=== PATIENT | female | born 1960 | race Caucasian/White ===

== ENCOUNTER 2016-08-26 19:17 | Emergency (ER) | payer OTHER ==
--- NOTE | 2016-08-26 21:33 | ED CLINICAL REPORT ---
Clinical Report - Physicians/Mid Levels [facility] [address] [place] [address] 08/26/2016 19:16 Patient: ESTHER BENEDICT Time Seen: 1927. Arrived- By private vehicle. Historian- patient. HISTORY OF PRESENT ILLNESS Chief Complaint: COUGH and SORE THROAT. This started past week and is still present (unchanged). It was abrupt in onset and has been constant but is not gone now. The illness is described as moderate. The patient has had a cough, a sore throat and a nasal discharge. She has had moderate amounts of thick, yellow sputum. (no leg swelling, weight gain, change in meds, or water retention. difficulty breathing only with the bouts of coughing). Additional history - The patient has had contact with a sick individual. (unknown). No recent travel. Similar symptoms previously: Recent medical care: Not recently seen/assessed. REVIEW OF SYSTEMS No diarrhea or abdominal pain. All systems otherwise negative, except as recorded above. PAST HISTORY See nurses notes. SOCIAL HISTORY Never smoker. Not exposed to second-hand smoke at home. No alcohol use or drug use. Is a local resident. ADDITIONAL NOTES The nursing notes have been reviewed. PHYSICAL EXAM Vital Signs: 08/26/2016 19:25 BP: 123/73. HR: 59. RR: 18. O2 saturation: 97%. Temp: 98.6 F. Pain level now: 3/10. Blood pressure normal. Oxygen saturation normal. Appearance: Alert. No acute distress. Eyes: Pupils equal, round and reactive to light. Eyes normal inspection. ENT: Ears normal. Nose normal. Pharynx normal. Uvula midline. Neck: Normal inspection. Neck supple. No meningeal signs. CVS: Normal heart rate and rhythm. Heart sounds normal. Pulses normal. Respiratory: No respiratory distress. Expiratory mild bilateral wheezes diffusely. No rales, rhonchi or stridor. Abdomen: Soft and nontender. No organomegaly. Back: Normal inspection. No CVA tenderness. Skin: Skin warm and dry. Normal skin color. No rash. Normal skin turgor. Extremities: Extremities exhibit normal ROM. No clubbing present or lower extremity edema. No calf tenderness. No lower extremity edema. Neuro: Oriented X 3. No motor deficit. No sensory deficit. LABS, X-RAYS, AND EKG Chest X-ray: Normal Chest X-Ray. PROGRESS AND PROCEDURES Course of Care: the patient is a pleasant 56-year-old male presented revised cough. Patient's symptoms have been ongoing for the past week. Vision isalso noted to be wheezing on examination. If patient's symptoms do not improve as expected with breathing treatments, will consider other causes for the patient's shortness of breath. The patient's only happen when patient is having a bout of coughing however. Patient retreated with breathing treatments. Respiratory therapist has been called. We decided with a chest x-ray for any signs of pneumonia. Patient is nontoxic and is pleasant. Patientdoes not appear to be septic. Patient's workup was noted for a clear chest x-ray. Symptoms havebeen improving with the breathing treatments. Patient has required several breathing treatments while here in the emergency department however states that he feels significantly improved. Patient with improved aeration in all lung lynch. Patient only now with very slight intermittent wheezing heard only occasionally with forced expiration and with coughing. Because of the patient's past medical history and current presentation, had a discussion with the patient in regards to the benefits and risks of antibiotic therapy. Patient also with digoxin. On able to provide a prescription forazithromycin however doxycycline does not appear to have any interactions. This medication should help with the patient's symptoms. Had a discussion patient to delinquency prevention social worker. Emergency Department diagnosis, home, follow-up, and return precautions. All questions have been answered. The patient expressed understanding of these instructions and was agreeable to them. Disposition: Discharged. Condition: good. CLINICAL IMPRESSION Acute bacterial bronchitis. Acute bronchospasm INSTRUCTIONS Warnings: GENERAL WARNINGS: Return or contact your physician immediately if your condition worsens or changes unexpectedly, if not improving as expected, or if other problems arise. Specifically return if pain, vomiting, bleeding, breathing difficulty or fever. Your Current Medications: CONTINUE TAKING THE FOLLOWING MEDICATIONS: Carvedilol Oral : BID. CeleXA Oral : daily. Digoxin Oral : daily. Furosemide Oral : daily. Losartan Potassium Oral : daily. Spironolactone Oral : daily. Wellbutrin Oral : daily. Prescription Medications: Doxycycline 100 mg: Take 1 capsule orally every 12 hours for 10 days. No refill. (Disp 20 caps) Phenergan w/ Codeine 10mg / 6.25mg per 5 mL: take 1-2 teaspoons every 6 hours as needed for pain or cough. No refill. Substitution is permissible. (Disp 120 mL) Follow-up: Return to the emergency department as needed. Follow up with your doctor in three days. Reason for referral: recheck today's concerns. Summary of care provided to patient via paper. Screening today revealed the patient's blood pressure to be in the normal range. The patient should follow up with a primary care provider for blood pressure management. Understanding of the discharge instructions verbalized by patient. (Electronically signed by Quique Sullivan Dr. 08/28/2016 12:16)
--- NOTE | 2016-08-26 21:34 | ED NURSING NOTES ---
Clinical Report - Nurses [facility] [address] [place] [address] 08/26/2016 19:16 Patient: ESTHER BENEDICT TRIAGE Triage time 19:25. Acuity: LEVEL 3. Chief Complaint: COUGH, RUNNY NOSE, FEVER and SORE THROAT. --19:36 Ayesha Gustafson R.N. 19:25 08/26/16. BP: 123/73 taken on the left arm, while lying. HR: 59 (regular and bradycardic). RR: 18 (regular and unlabored). O2 saturation: 97% on room air. Temp: 98.6 F (oral). Pain level now: 06/29. --19:36 Ayesha Gustafson R.N. Weight: 108.8 kg stated. Height/Length: 69 inches Per Patient. BMI: 35.4. --19:36 Ayesha Gustafson R.N. Medications Carvedilol Oral, BID. --19:26 Ayesha Gustafson R.N. Spironolactone Oral, daily. --19:26 Ayesha Gustafson R.N. Digoxin Oral, daily. --19:27 Ayesha Gustafson R.N. Furosemide Oral, daily. --19:27 Ayesha Gustafosn R.N. Losartan Potassium Oral, daily. --19:27 Ayesha Gustafson R.N. CeleXA Oral, daily. --19:27 Ayesha Gustafson R.N. Wellbutrin Oral, daily. --19:27 Ayesha Gustafson R.N. Allergies No Known Drug Allergy. --19:28 Ayesha Gustafson R.N. History Arrived by private vehicle. Historian: patient. Accompanied by family. Primary physician (hussein). Onset. (3 days ago). She has had a nasal discharge, fatigue and difficulty breathing. PAST MEDICAL HX: Immunizations: up-to-date. SOCIAL HX: Smoker- current status unknown (electronic cigarrettes). No alcohol use or drug use. SELF HARM ASSESSMENT: A self harm assessment was performed. The patient answered "no" to the question "Have you recently felt down, depressed, or hopeless?", "Have you noticed less interest or pleasure in doing things?", "Do you have thoughts of harming or killing yourself?", "Are you here because you tried to hurt yourself?", "Have you ever tried to hurt yourself before today?", "Have you recently had thoughts about harming or killing others?" and "Do you have any dangerous items in your possession?". --19:36 Ayesha Gustafson R.N. PROBLEMS: Pulmonary Embolism. Pacemaker. Stented coronary artery. Hypertension. Depression. Congestive Heart Failure. --19:30 Ayesha Gustafson R.N. ADDITIONAL SURGERIES: Angioplasty of blood vessel. Pacemaker. --19:30 Ayesha Gustafson R.N. Interventions ID band on patient. --19:36 Ayesha Gustafson R.N. PHYSICAL ASSESSMENT Ambulatory to room. GENERAL / NEURO / PSYCH: Alert. Oriented X 4. Appears in no acute distress. HEENT: Pupils equal, round and reactive to light. Voice within normal limits. Mucous membranes are pink. RESPIRATORY: Mild respiratory distress. Respirations not labored. Wheezes bilaterally. Cough. CVS: Normal sinus rhythm noted. Cardiac rhythm: paced rhythm. Capillary refill less than 2 seconds. SKIN: Skin is warm and dry. Normal skin turgor. --19:37 Ayesha Gustafson R.N. NURSING PROGRESS NOTES picker / packer, pulse oximeter and NIBP monitor placed on patient. Patient gowned. Two patient identifiers checked. Call light placed in reach. Side rails up x 2. Bed placed in lowest position. Brakes of bed on. --19:38 Ayesha Gustafson R.N. Patient ready for evaluation- chart flagged. --19:38 Ayesha Gustafson R.N. 19:41 08/26/2016 Duoneb (Ipratropium-Albuterol) Neb TX Nebulizer 1 unit dose given. Given by the respiratory therapist. Allergies verified and confirmed 5 rights. --19:41 Zoey Payne 20:22 08/26/2016 Albuterol Neb TX Nebulizer 3 unit dose given. Given by the respiratory therapist. Allergies verified and confirmed 5 rights. --20:22 Zoey Payne 21:22 08/26/16. BP: 103/58 taken on the left arm, while lying. HR: 68 (regular). RR: 18. O2 saturation: 99% on room air. Temp: deferred. Pain level now: 11/29. --21:24 Ayesha Gustafson R.N. The patient is calm and resting quietly. Overall patient status is the same- she states feels the same. ( states pain in throat and cough continuing,). --21:24 Ayesha Gustafson R.N. 21:39 08/26/2016 DOXYCYCLINE MONOHYDRATE PO Tablets 100 mg given. Allergies verified and confirmed 5 rights. --21:39 Serafin Gomez R.N. DISPOSITION / DISCHARGE Condition at departure: improved. No learning barriers present. Reviewed medication(s) side effects, precautions, dosing and course information. Prescription(s) given to the patient. Patient verbalized understanding. Written instructions provided in Tamazight. The patient was discharged home and accompanied by internal wholesaler. She left the Emergency Department ambulatory and via private vehicle. Lead Principal Technical Architect driving. Medication list reviewed and validated. --21:47 Coretta Guaman R.N. 21:46 08/26/16. BP: 102/66. HR: 76. RR: 18. O2 saturation: 96%. Temp: deferred. Pain level now: 06/29. --21:47 Coretta Guaman R.N. Locked/Released at 08/26/2016 21:47 by Coretta Guaman R.N.
--- NOTE | 2016-08-26 21:34 | ED NURSING NOTES ---
Clinical Report - Nurses [facility] [address] [place] [address] 08/26/2016 19:16 Patient: ESTHER BENEDICT TRIAGE Triage time 19:25. Acuity: LEVEL 3. Chief Complaint: COUGH, RUNNY NOSE, FEVER and SORE THROAT. --19:36 Ayesha Gustafson R.N. 19:25 08/26/16. BP: 123/73 taken on the left arm, while lying. HR: 59 (regular and bradycardic). RR: 18 (regular and unlabored). O2 saturation: 97% on room air. Temp: 98.6 F (oral). Pain level now: 06/29. --19:36 Ayesha Gustafson R.N. Weight: 108.8 kg stated. Height/Length: 69 inches Per Patient. BMI: 35.4. --19:36 Ayesha Gustafson R.N. Medications Carvedilol Oral, BID. --19:26 Ayesha Gustafson R.N. Spironolactone Oral, daily. --19:26 Ayesha Gustafson R.N. Digoxin Oral, daily. --19:27 Ayesha Gustafson R.N. Furosemide Oral, daily. --19:27 Ayesha Gustafson R.N. Losartan Potassium Oral, daily. --19:27 Ayesha Gustafson R.N. CeleXA Oral, daily. --19:27 Ayesha Gustafson R.N. Wellbutrin Oral, daily. --19:27 Ayesha Gustafson R.N. Allergies No Known Drug Allergy. --19:28 Ayesha Gustafson R.N. History Arrived by private vehicle. Historian: patient. Accompanied by family. Primary physician (hussein). Onset. (3 days ago). She has had a nasal discharge, fatigue and difficulty breathing. PAST MEDICAL HX: Immunizations: up-to-date. SOCIAL HX: Smoker- current status unknown (electronic cigarrettes). No alcohol use or drug use. SELF HARM ASSESSMENT: A self harm assessment was performed. The patient answered "no" to the question "Have you recently felt down, depressed, or hopeless?", "Have you noticed less interest or pleasure in doing things?", "Do you have thoughts of harming or killing yourself?", "Are you here because you tried to hurt yourself?", "Have you ever tried to hurt yourself before today?", "Have you recently had thoughts about harming or killing others?" and "Do you have any dangerous items in your possession?". --19:36 Ayesha Gustafson R.N. PROBLEMS: Pulmonary Embolism. Pacemaker. Stented coronary artery. Hypertension. Depression. Congestive Heart Failure. --19:30 Ayesha Gustafson R.N. ADDITIONAL SURGERIES: Angioplasty of blood vessel. Pacemaker. --19:30 Ayesha Gustafson R.N. Interventions ID band on patient. --19:36 Ayesha Gustafson R.N. PHYSICAL ASSESSMENT Ambulatory to room. GENERAL / NEURO / PSYCH: Alert. Oriented X 4. Appears in no acute distress. HEENT: Pupils equal, round and reactive to light. Voice within normal limits. Mucous membranes are pink. RESPIRATORY: Mild respiratory distress. Respirations not labored. Wheezes bilaterally. Cough. CVS: Normal sinus rhythm noted. Cardiac rhythm: paced rhythm. Capillary refill less than 2 seconds. SKIN: Skin is warm and dry. Normal skin turgor. --19:37 Ayesha Gustafson R.N. NURSING PROGRESS NOTES teletypesetter monitor, pulse oximeter and NIBP monitor placed on patient. Patient gowned. Two patient identifiers checked. Call light placed in reach. Side rails up x 2. Bed placed in lowest position. Brakes of bed on. --19:38 Ayesha Gustafson R.N. Patient ready for evaluation- chart flagged. --19:38 Ayesha Gustafson R.N. 19:41 08/26/2016 Duoneb (Ipratropium-Albuterol) Neb TX Nebulizer 1 unit dose given. Given by the respiratory therapist. Allergies verified and confirmed 5 rights. --19:41 Zoey Payne 20:22 08/26/2016 Albuterol Neb TX Nebulizer 3 unit dose given. Given by the respiratory therapist. Allergies verified and confirmed 5 rights. --20:22 Zoey Payne 21:22 08/26/16. BP: 103/58 taken on the left arm, while lying. HR: 68 (regular). RR: 18. O2 saturation: 99% on room air. Temp: deferred. Pain level now: 11/29. --21:24 Ayesha Gustafson R.N. The patient is calm and resting quietly. Overall patient status is the same- she states feels the same. ( states pain in throat and cough continuing,). --21:24 Ayesha Gustafson R.N. 21:39 08/26/2016 DOXYCYCLINE MONOHYDRATE PO Tablets 100 mg given. Allergies verified and confirmed 5 rights. --21:39 Serafin Gomez R.N. DISPOSITION / DISCHARGE Condition at departure: improved. No learning barriers present. Reviewed medication(s) side effects, precautions, dosing and course information. Prescription(s) given to the patient. Patient verbalized understanding. Written instructions provided in Sinhala. The patient was discharged home and accompanied by textile conservator. She left the Emergency Department ambulatory and via private vehicle. Master Steam Yacht driving. Medication list reviewed and validated. --21:47 Coretta Guaman R.N. 21:46 08/26/16. BP: 102/66. HR: 76. RR: 18. O2 saturation: 96%. Temp: deferred. Pain level now: 06/29. --21:47 Coretta Guaman R.N. Locked/Released at 08/26/2016 21:47 by Coretta Guaman R.N.
--- NOTE | 2016-08-26 21:34 | ED ORDER SUMMARY ---
..... Patient: ESTHER BENEDICT OrderSheet [facility] VisitID: [id number] [address] [place] [address] 56y, F Registration Date/Time: 08/26/2016 ORDER SHEET Weight: 108.8 kg (stated) Allergies: No Known Drug Allergy GENERAL ORDERS: Chest 2V Urgent (19:36 08/26/2016 Heri Tracey) (Ack 19:38 AMcQuoid ER Tech1) (20:06 Khushboo R.N.) Shuttle Car Operator (Continuous) (cough, cardiac history) (19:36 08/26/2016 Heri Tracey) (Ack 19:38 AMcQuoid ER Tech1) (19:38 Khushboo R.N.) Pulse oximeter (19:36 08/26/2016 Heri Tracey) (Ack 19:38 AMcQuoid ER Tech1) (19:38 Khushboo R.N.) MEDICATION ORDERS: DuoNeb Neb Tx 1 unit dose (NOW) (19:36 08/26/2016 Heri Tracey) (19:41 Branden) Albuterol Neb Tx 3 unit doses (NOW) (20:16 08/26/2016 Heri Tracey) (20:22 Branden) Doxycycline Monohydrate PO 100 mg (NOW) (21:26 08/26/2016 Heri Tracey) (Ack 21:36 Jeanette R.NFreeman) (21:39 Jeanette Foster.NFreeman) IV FLUIDS: ORDER SHEET NOTES: [Electronically signed by Coretta Guaman R.N. (21:47 08/26/2016)] [Electronically signed by Quique Sullivan Dr. (12:16 08/28/2016)] [Electronically locked/signed by Coretta Guaman R.N. (21:47 08/26/2016)]
--- NOTE | 2016-08-26 21:34 | ED ORDER SUMMARY ---
..... Patient: ESTHER BENEDICT OrderSheet [facility] VisitID: [id number] [address] [place] [address] 56y, F Registration Date/Time: 08/26/2016 ORDER SHEET Weight: 108.8 kg (stated) Allergies: No Known Drug Allergy GENERAL ORDERS: Chest 2V Urgent (19:36 08/26/2016 Heri Tracey) (Ack 19:38 AMcQuoid ER Tech1) (20:06 Khushboo R.N.) District Plant Engineer (Continuous) (cough, cardiac history) (19:36 08/26/2016 Heri Tracey) (Ack 19:38 AMcQuoid ER Tech1) (19:38 Khushboo R.N.) Pulse oximeter (19:36 08/26/2016 Heri Tracey) (Ack 19:38 AMcQuoid ER Tech1) (19:38 Khushboo R.N.) MEDICATION ORDERS: DuoNeb Neb Tx 1 unit dose (NOW) (19:36 08/26/2016 Heri Tracey) (19:41 Branden) Albuterol Neb Tx 3 unit doses (NOW) (20:16 08/26/2016 Heri Tracey) (20:22 Branden) Doxycycline Monohydrate PO 100 mg (NOW) (21:26 08/26/2016 Heri Tracey) (Ack 21:36 Jeanette R.NFreeman) (21:39 Jeanette Foster.NFreeman) IV FLUIDS: ORDER SHEET NOTES: [Electronically signed by Coretta Guaman R.N. (21:47 08/26/2016)] [Electronically signed by Quique Sullivan Dr. (12:16 08/28/2016)] [Electronically locked/signed by Coretta Guaman R.N. (21:47 08/26/2016)]
--- NOTE | 2016-08-26 21:47 | DIAGNOSTIC IMAGING REPORT ---
PROCEDURE: XR CHEST 2 VIEW INDICATION: COUGH TECHNIQUE: Two views. COMPARISON: None. FINDINGS: Normal heart size. Single lead pacemaker present. Mildly prominent central pulmonary arteries. No central venous congestion. Slight asymmetric right hemidiaphragm elevation. The visible lung lynch are clear. No effusion or pneumothorax. Mild endplate spurring in the thoracic spine. IMPRESSION: 1. Normal heart size with pacemaker present. 2. No acute process.
--- NOTE | 2016-08-28 12:17 | ED DISCHARGE INSTRUCTIONS ---
Patient: ESTHER BENEDICT General Instructions [facility] VisitID: [id number] [address] [place] [address] 56y, F Registration Date/Time: 08/26/2016 Acute bacterial bronchitis. Acute bronchospasm INSTRUCTIONS Warnings: GENERAL WARNINGS: Return or contact your physician immediately if your condition worsens or changes unexpectedly, if not improving as expected, or if other problems arise. Specifically return if pain, vomiting, bleeding, breathing difficulty or fever. Your Current Medications: CONTINUE TAKING THE FOLLOWING MEDICATIONS: Carvedilol Oral : BID. CeleXA Oral : daily. Digoxin Oral : daily. Furosemide Oral : daily. Losartan Potassium Oral : daily. Spironolactone Oral : daily. Wellbutrin Oral : daily. Prescription Medications: Doxycycline 100 mg: Take 1 capsule orally every 12 hours for 10 days. No refill. (Disp 20 caps) Phenergan w/ Codeine 10mg / 6.25mg per 5 mL: take 1-2 teaspoons every 6 hours as needed for pain or cough. No refill. Substitution is permissible. (Disp 120 mL) Follow-up: Return to the emergency department as needed. Follow up with your doctor in three days. Reason for referral: recheck today's concerns. Summary of care provided to patient via paper. Screening today revealed the patient's blood pressure to be in the normal range. The patient should follow up with a primary care provider for blood pressure management. Understanding of the discharge instructions verbalized by patient. ADDITIONAL INFORMATION Bronchitis (Adult: Abx Tx) BRONCHITIS is an infection of the air passages (bronchial tubes). It often occurs during the common cold. Symptoms include cough with mucus (phlegm) and low-grade fever. Bronchitis usually lasts 7-14 days. Mild cases can be treated with simple home remedies. More severe infection is treated with an antibiotic. Home Care: If symptoms are severe, rest at home for the first 2-3 days. When you resume activity, don't let yourself get too tired. Do not smoke. Avoid being exposed to the smoke of others. You may use acetaminophen (Tylenol) or ibuprofen (Motrin, Advil) to control fever or pain, unless another medicine was prescribed for this. [NOTE: If you have chronic liver or kidney disease or ever had a stomach ulcer or GI bleeding, talk with your doctor before using these medicines.] Your appetite may be poor, so a light diet is fine. Avoid dehydration by drinking 6-8 glasses of fluids per day (water, soft, drinks, juices, tea, soup, etc.). Extra fluids will help loosen secretions in the lungs. Xwso-grf-[id number] cough medicines that containdextromethorphan(such as Robitussin DM) and decongestants (Actifed or Sudafed) may help relieve cough and congestion. [NOTE: Do not use decongestants if you have high blood pressure.] Finish all antibiotic medicine, even if you are feeling better after only a few days. Follow Up with your doctor or as directed if you dont start to feel better after three days. [NOTE: If you are age 65 or older, or if you have chronic asthma or COPD, we recommend a PNEUMOCOCCAL VACCINATION every five years and a yearly INFLUENZAVACCINATION (FLU-SHOT) every . Ask your doctor about this. If you had an X-ray, a radiologist will review it. You will be notified of any new findings that may affect your care.] Get Prompt Medical Attention if any of the following occur: Fever over 100.4F (38.0C) for more than three days Trouble breathing, wheezing or pain with breathing Coughing up blood or increased amounts of colored sputum Weakness, drowsiness, headache, facial pain, ear pain or a stiff neck Bronchospasm (Adult) Bronchospasm occurs when the airways (bronchial tubes) go into spasm and contract. This makes it hard to breathe and causes wheezing (a high-pitched whistling sound). Bronchospasm can also cause frequent coughing without the wheezing sound. Bronchospasm is due to irritation, inflammation or allergic reaction of the airways. People with asthma get bronchospasm. However, not everyone with bronchospasm has asthma. Being exposed to harmful fumes, a recent case of bronchitis, or a flare-up of chronic emphysema (COPD) may cause the airways to spasm. An episode of bronchospasm may last 7-14 days. Medicine may be prescribed to relax the airways and prevent wheezing. Antibiotics will be prescribed only if your doctor thinks there is a bacterial infection. Antibiotics do not help a viral infection. Home Care: Drink lots of water or other fluids (at least 10 glasses a day) during an attack. This will loosen lung secretions and make it easier to breathe. If you have heart or kidney disease, check with your doctor before you drink extra amounts of fluids. Take prescribed medicine exactly at the times advised. If you have a hand-held inhaler or aerosol breathing medicine, do not use it more than once every four hours, unless told to do so. If prescribed an antibiotic or prednisone, take all of the medicine even if you are feeling better after a few days. Do not smoke. Avoid being exposed to the smoke of others. If you were given an inhaler, use it exactly as directed. If you need to use it more often than prescribed, your condition may be getting worse. Contact your doctor or this facility. Follow Up With Your Doctor, Or As Directed. [ NOTE: If you are age 65 or older, or if you have chronic asthma or COPD, we recommend a PNEUMOCOCCAL VACCINATION every five years and a yearly INFLUENZA VACCINATION (FLU-SHOT) every . Ask your doctor about this.] Get Prompt Medical Attention If Any Of The Following Occur: Increased wheezing or shortness of breath Need to use your inhalers more often than usual without relief Fever of 100.4F (38C) or higher, or as directed by your healthcare provider Coughing up lots of dark-colored or bloody sputum (mucus) Chest pain with each breath You do not start to improve within 24 hours Doxycycline Monohydrate Oral tablet What is this medicine? DOXYCYCLINE (dox ilana delgado) is a tetracycline antibiotic. It kills certain bacteria or stops their growth. It is used to treat many kinds of infections, like dental, skin, respiratory, and urinary tract infections. It also treats acne, Lyme disease, malaria, and certain sexually transmitted infections. How should I use this medicine? Take this medicine by mouth with a full glass of water. Follow the directions on the prescription label. It is best to take this medicine without food, but if it upsets your stomach take it with food. Take your medicine at regular intervals. Do not take your medicine more often than directed. Take all of your medicine as directed even if you think you are better. Do not skip doses or stop your medicine early. Talk to your anglesmith helper regarding the use of this medicine in children. Special care may be needed. While this drug may be prescribed for children as young as 8 years old for selected conditions, precautions do apply. What side effects may I notice from receiving this medicine? Side effects that you should report to your doctor or health adult care manager as soon as possible: allergic reactions like skin rash, itching or hives, swelling of the face, lips, or tongue difficulty breathing fever itching in the rectal or genital area pain on swallowing redness, blistering, peeling or loosening of the skin, including inside the mouth severe stomach pain or cramps unusual bleeding or bruising unusually weak or tired yellowing of the eyes or skin Side effects that usually do not require medical attention (report to your doctor or health adult care manager if they continue or are bothersome): diarrhea loss of appetite nausea, vomiting What may interact with this medicine? antacids barbiturates control pills bismuth subsalicylate carbamazepine methoxyflurane other antibiotics phenytoin vitamins that contain iron warfarin What if I miss a dose? If you miss a dose, take it as soon as you can. If it is almost time for your next dose, take only that dose. Do not take double or extra doses. Where should I keep my medicine? Keep out of the reach of children. Store at room temperature, below 30 degrees C (86 degrees F). Protect from light. Keep container tightly closed. Throw away any unused medicine after the expiration date. Taking this medicine after the expiration date can make you seriously ill. What should I tell my health care provider before I take this medicine? They need to know if you have any of these conditions: liver disease long exposure to sunlight like working outdoors stomach problems like colitis an unusual or allergic reaction to doxycycline, tetracycline antibiotics, other medicines, foods, dyes, or preservatives or trying to get breast-feeding What should I watch for while using this medicine? Tell your doctor or health adult care manager if your symptoms do not improve. Do not treat diarrhea with over the counter products. Contact your doctor if you have diarrhea that lasts more than 2 days or if it is severe and watery. Do not take this medicine just before going to bed. It may not dissolve properly when you lay down and can cause pain in your throat. Drink plenty of fluids while taking this medicine to also help reduce irritation in your throat. This medicine can make you more sensitive to the sun. Keep out of the sun. If you cannot avoid being in the sun, wear protective clothing and use sunscreen. Do not use sun lamps or tanning beds/booths. control pills may not work properly while you are taking this medicine. Talk to your doctor about using an extra method of control. If you are being treated for a sexually transmitted infection, avoid sexual contact until you have finished your treatment. Your sexual partner may also need treatment. Avoid antacids, aluminum, calcium, magnesium, and iron products for 4 hours before and 2 hours after taking a dose of this medicine. If you are using this medicine to prevent malaria, you should still protect yourself from contact with mosquitos. Stay in screened-in areas, use mosquito nets, keep your body covered, and use an insect repellent. You have been given the following additional information: Bronchitis, Antiobiotic Treatment (Adult) Bronchospasm (Adult) Doxycycline Monohydrate Oral tablet (Electronically signed by Quique Sullivan Dr. 08/28/2016 12:16)
--- NOTE | 2016-08-28 12:17 | ED MED RECONCILIATION SUMMARY ---
Patient: ESTHER BENEDICT Medication Reconciliation Report [facility] VisitID: [id number] [address] [place] [address] 56y, F Registration Date/Time: 08/26/2016 Weight: 108.8 kg Height/Length: 69 in. BMI: 35.4 ALLERGIES: No Known Drug Allergy The patient's Home Medications are listed below: CONTINUE TAKING THE FOLLOWING MEDICATIONS: Carvedilol Oral, BID CeleXA Oral, daily Digoxin Oral, daily Furosemide Oral, daily Losartan Potassium Oral, daily Spironolactone Oral, daily Wellbutrin Oral, daily The source(s) of the original Home Medication information: Not obtained. The following Medications were given to the patient in the Emergency Department: Duoneb [Neb Tx] Neb TX 1 unit dose, administered: 08/26/2016 7:41:00 PM Albuterol [Neb Tx] Neb TX 3 unit dose, administered: 08/26/2016 8:22:00 PM DOXYCYCLINE MONOHYDRATE [PO] PO 100 mg, administered: 08/26/2016 9:39:00 PM The following Medications were prescribed to the patient: Doxycycline 100 mg: Take 1 capsule orally every 12 hours for 10 days. No refill.(Disp 20 caps) -- Quique Sullivan Dr. Phenergan w/ Codeine 10mg / 6.25mg per 5 mL: take 1-2 teaspoons every 6 hours as needed for pain or cough. No refill. Substitution is permissible.(Disp 120 mL) -- Quique Sullivan Dr.
--- NOTE | 2016-08-28 12:17 | ED MED RECONCILIATION SUMMARY ---
Patient: ESTHER BENEDICT Medication Reconciliation Report [facility] VisitID: [id number] [address] [place] [address] 56y, F Registration Date/Time: 08/26/2016 Weight: 108.8 kg Height/Length: 69 in. BMI: 35.4 ALLERGIES: No Known Drug Allergy The patient's Home Medications are listed below: CONTINUE TAKING THE FOLLOWING MEDICATIONS: Carvedilol Oral, BID CeleXA Oral, daily Digoxin Oral, daily Furosemide Oral, daily Losartan Potassium Oral, daily Spironolactone Oral, daily Wellbutrin Oral, daily The source(s) of the original Home Medication information: Not obtained. The following Medications were given to the patient in the Emergency Department: Duoneb [Neb Tx] Neb TX 1 unit dose, administered: 08/26/2016 7:41:00 PM Albuterol [Neb Tx] Neb TX 3 unit dose, administered: 08/26/2016 8:22:00 PM DOXYCYCLINE MONOHYDRATE [PO] PO 100 mg, administered: 08/26/2016 9:39:00 PM The following Medications were prescribed to the patient: Doxycycline 100 mg: Take 1 capsule orally every 12 hours for 10 days. No refill.(Disp 20 caps) -- Quique Sullivan Dr. Phenergan w/ Codeine 10mg / 6.25mg per 5 mL: take 1-2 teaspoons every 6 hours as needed for pain or cough. No refill. Substitution is permissible.(Disp 120 mL) -- Quique Sullivan Dr.
--- NOTE | 2016-08-28 12:17 | ED MAR SUMMARY ---
..... Medication Administration Record [facility] [address] [place] [address] Patient: ESTHER BENEDICT Visit ID: [id number] 56y, F Weight: 108.8 kg Height/Length: 69 in BMI: 35.4 ALLERGIES: No Known Drug Allergy Given 19:41 08/26/2016 Zoey Payne, Medication Administered: DUONEB [NEB TX] (IPRATROPIUM-ALBUTEROL), Dose: 1 unit dose Nebulizer Neb TX. Medication Ordered: DuoNeb Neb Tx 1 unit dose (NOW). Given 20:22 08/26/2016 Zoey Payne, Medication Administered: ALBUTEROL [NEB TX], Dose: 3 unit dose Nebulizer Neb TX. Medication Ordered: Albuterol Neb Tx 3 unit doses (NOW). Given 21:39 08/26/2016 Serafin Gomez RZainab Medication Administered: DOXYCYCLINE MONOHYDRATE [PO], Dose: 100 mg Tablets PO. Medication Ordered: Doxycycline Monohydrate PO 100 mg (NOW).
--- NOTE | 2016-08-28 12:17 | ED MAR SUMMARY ---
..... Medication Administration Record [facility] [address] [place] [address] Patient: ESTHER BENEDICT Visit ID: [id number] 56y, F Weight: 108.8 kg Height/Length: 69 in BMI: 35.4 ALLERGIES: No Known Drug Allergy Given 19:41 08/26/2016 Zoey Payne, Medication Administered: DUONEB [NEB TX] (IPRATROPIUM-ALBUTEROL), Dose: 1 unit dose Nebulizer Neb TX. Medication Ordered: DuoNeb Neb Tx 1 unit dose (NOW). Given 20:22 08/26/2016 Zoey Payne, Medication Administered: ALBUTEROL [NEB TX], Dose: 3 unit dose Nebulizer Neb TX. Medication Ordered: Albuterol Neb Tx 3 unit doses (NOW). Given 21:39 08/26/2016 Serafin Gomez RZainab Medication Administered: DOXYCYCLINE MONOHYDRATE [PO], Dose: 100 mg Tablets PO. Medication Ordered: Doxycycline Monohydrate PO 100 mg (NOW).
== END 2016-08-26 21:45 | disposition home or self-care (01) ==
LOC: ED SRH 19:17
DX: J20.9 Acute bronchitis, unspecified (principal)